=== PATIENT | female | born 1940 | race Caucasian/White ===

== ENCOUNTER 2019-05-12 15:57 | Inpatient (IN) | payer OTHER ==
[~2019-05-12] VITALS: Ht 154.9 cm; Wt 61.0 kg
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
[~2019-05-12 15:57] MED LIST: ACETAMINOPHEN325 M1 PO; ACIDOPHILUS1 EAC4 PO; APAP650 PO; AUGMENTIN 875-1 EACH PO; CARDIZEM60 MG PO; CEFDINIR300 MG PO; CEFUROXIME500 MG PO; DILTIAZEM 24HR180 M3 PO; ELIQUIS5 MG PO; FIRVANQ50 MG/1 ML PO; FLOMAX0.4 MG PO; IPRAT-ALBUT 0.5-3 ML INH; IPRAT-ALBUT 0.5-3 ML PO; IRON325 PO; LEVAQUIN 500 M500 M2 PO; LOPERAMIDE 2 MG2 M1 PO; MAGOX 400400 MG PO; PROTONIX40 M1 PO; THERA M PLUS T1 EAC2 PO; TRAMADOL 50 MG50 MG PO; TRIAMCINOLONE A80 G2 TOP; VITAMIN D1000 UNI1 PO; VOLTAREN GEL 1100 G1 TOP
[2019-05-12 15:58] VITALS: BP 125/93
[2019-05-12 16:10] LABS: ABSOLUTE NEUTROPHILS 4.3 thou/uL (1.4-8.2); BASOPHILS 0.6 % (0.0-2.0); EOSINOPHILS 1.1 % (0.0-3.0); HEMATOCRIT 32.7 % (37.0-47.0); HEMOGLOBIN 10.7 gm/dL (12.0-15.0); LYMPHOCYTES 30.3 % (24.0-44.0); MCH 29.3 pg (26.0-34.0); MCHC 32.7 g/dL (28.0-37.0); MCV 89.4 fL (80.0-100.0); MONOCYTES 11.1 % (1.0-8.0); PLATELET COUNT 202 thou/uL (150-400); POLYS 56.9 % (36.0-66.0); RBC 3.66 mil/uL (4.20-5.00); RDW 15.9 % (10.5-14.5); WBC 7.5 thou/uL (4.0-11.0)
[2019-05-12 16:17] LABS: CALCIUM 8.9 mg/dL (8.5-10.1); POTASSIUM 3.1 mmol/L (3.5-5.1)
[2019-05-12 16:23] LABS: ALBUMIN 2.9 g/dL (3.4-5.0); TOTAL BILIRUBIN 0.4 mg/dL (<0.1-1.0); TOTAL PROTEIN 6.6 g/dL (6.4-8.2)
[2019-05-12 16:24] LABS: URINE BILIRUBIN NEGATIVE (Negative); URINE BLOOD 3+ (Negative); URINE CLARITY CLEAR; URINE COLOR YELLOW; URINE GLUCOSE-RANDOM* NEGATIVE (Negative); URINE KETONES NEGATIVE (Negative); URINE LEUKOCYTES NEGATIVE (Negative); URINE NITRITE NEGATIVE (Negative); URINE PROTEIN (DIPSTICK) NEGATIVE (Negative); URINE SPECIFIC GRAVITY <= 1.005 (1.005-1.035); URINE UROBILINOGEN 0.2 E.U./dl (0.2-1.0)
[2019-05-12 16:30] LABS: CASTS None Seen /LPF (None Seen); CRYSTALS None Seen /LPF (None Seen); SQUAMOUS 4-10 Moderate /LPF (0-3); URINE RBC >20 Many /HPF (0-2)
[2019-05-12 16:31] LABS: BACTERIA 1-9 Few /HPF (None Seen); URINE WBC 6-15 Few /HPF (0-5)
--- NOTE | 2019-05-12 16:38 | NUR ---
PT HAS TWO BUTTOCK WOUNDS, WOUND CONSULT PLACED.
[2019-05-12 20:37] VITALS: BP 137/83
[2019-05-12] MEDS ORDERED: VITAMIN C500 M1 PO (23:10)
[2019-05-12] MEDS ORDERED: SEROQUEL 25 MG25 M1 PO ×2 (23:13→23:14)
[2019-05-12] MEDS ORDERED: ACIDOPHILUS1 EAC4 PO (23:18)
[2019-05-12] MEDS ORDERED: VANCOCIN 125 M125 M1 PO ×2 (23:24→23:30)
[2019-05-12] MEDS ORDERED: VANCOCIN 125 M125 M1 (23:27)
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
[2019-05-13 04:44] VITALS: BP 169/101
[2019-05-13 05:10] VITALS: BP 169/97
--- NOTE | 2019-05-13 05:14 | NUR ---
The pt. slept sound all nite, was incontinent of bladder a few times in the nite and changed/cleansed. Wound photos were taken and they were measured and dressed. She was calm, cooperative, soft-spoken. zt=882/97, p=81. Padmini JANITOR AND CLEANER was called and she said to give Cardizem medication now and monitor. No c.o. chest pain, shortness of breath, or discomfort.
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
--- NOTE | 2019-05-13 07:45 | NUR ---
PT UP IN DINNING ROOM SITTING AT TABLE. PT HAS WALKER AT SIDE. PT STATED SHE HAS SOME PAIN TO HIPS BILATERALLY, COULDN'T SAY WHAT LEVEL, JUST ACHES. PT KNOW SHE IS AT [facility]. PT KNOWS NAME AND BIRTHDAY. PT HAS IRREGULAR HEARTBEAT. PT HAS WOUNDS TO COCCYX X2 AND ONE TO RT UPPER THIGH DORSAL SIDE. PT LUNGS CLEAR. PT UP WITH WALKER WITH STAND-BY ASSIST. PT HAS HAD SMALL SOFT STOOL.
[2019-05-13 08:00] VITALS: BP 142/95
[2019-05-13 08:35] VITALS: BP 142/95
--- NOTE | 2019-05-13 08:52 | NUR ---
WOUND CARE HERE TO SEE PT. ORDERS OBTAINED FOR DRESSING CHANGES.
[2019-05-13 08:54] LABS: CALCIUM 9.5 mg/dL (8.5-10.1); CREATININE 0.9 mg/dL (0.6-1.0); MAGNESIUM 1.8 mg/dL (1.8-2.4); POTASSIUM 3.3 mmol/L (3.5-5.1)
--- NOTE | 2019-05-13 09:21 | NUR ---
ADM KDUR 40MEQ PO FOR POTASSIUM LEVEL 3.3. WILL RECHECK IN 4 HOURS.
--- NOTE | 2019-05-13 10:57 | NUR ---
PT WENT DOWN TO CT SCAN. PT WENT DOWN IN W/C AND ACCOMPANIED BY STAFF.
--- NOTE | 2019-05-13 13:02 | NUR ---
ADM MAG. 400MG PO FOR LAB LEVEL 1.8.
--- NOTE | 2019-05-13 14:30 | NUR ---
DRESSSED WOUNDS TO COCCYX AND RT HIP. PT LAYING IN BED.
[2019-05-13 17:06] LABS: FOLIC ACID 14.2 ng/mL (8.6-58.9); TSH 0.483 uIU/mL (0.358-3.740)
--- NOTE | 2019-05-13 19:11 | NUR ---
PT COMPLIANT WITH MEDS AND EATING WELL. PT UP WITH WALKER.
[2019-05-13 20:13] VITALS: BP 122/66
--- NOTE | 2019-05-13 23:36 | NUR ---
ASSUMED CARE OF THE PT AT 191 PM. ALERT ET ORIENTED X 2. MAKES NEEDS KNOWN. THE PT HAS DRESSING TO HER HIP AND COCCYX, WHICH WERE CHANGED DURING THE DAY SHIFT. HEART RATE IRREGULAR. LUNGS CLEAR BILATERALLY, RESP., EVEN, AND UNLABORED. +BS HEARD IN ALL 4 QUADRANTS. THE PT WALKS WITH A WALKER. THE PT TOOK HER HS MEDICATIONS WITHOUT ANY DIFFICULTY. REMAINS ON 12 MINUTE CHECKS FOR HER SAFETY.
--- NOTE | 2019-05-14 09:01 | NUR ---
PATIENT UP ON DINING PADRON FOR BREAKFAST. RESPONSIVE TO QUESTIONS ADDRESSED TO HER. MEDICATION COMPLIANT. PLEASANT AND CALM. STATED GOOD NIGHT SLEEP WHEN ASKED. DENIES ANY S/I - SMILING - OBSERVED NO INTERNAL STIMULI THIS MORNING. RETIRED TO HER ROOM AFTER BREAKFAST.
[2019-05-14 09:06] VITALS: BP 147/75
--- NOTE | 2019-05-14 15:16 | NUR ---
SW spoke with pt's son and he reported that she was having increased behaviors since her surgeries, and he would like her back in [place] near his home. [facility] [phone]
--- NOTE | 2019-05-14 17:24 | EKG ---
[address] [place] [address] ELECTROCARDIOGRAM REPORT Name: BETTYE DEE Room #: [facility] ADM IN M.R.#: [id number] Admission: 05/12/19 Attend Phys: Jose Luis Krause DO Discharge: Date of : 38 Report #: [id number] THIS REPORT FOR: //name// [facility] Test Date: 2019-05-13 Test Time: 19:11:24 Pat Name: BETTYE DEE Department: Room: [facility] Gender: F Operator Cavity Pump: Jessica BALDWIN : 1940 Requested By: Jose Luis Krause Order Number: [id number] MD: Janes Jaeger Measurements Intervals [place] Rate: 77 P: SD: QRS: -19 QRSD: 95 T: 4 QT: 408 QTc: 462 Interpretive Statements Atrial fibrillation Poor R wave progression No previous ECG available for comparison Electronically Signed On 05-14-2019 17:23:49 CDT by Janes Jaeger [email or web address] <ELECTRONICALLY SIGNED> By: Janes Jaeger MD, [facility] 05/14/19 172 10 10 Janes Jaeger MD, FACC /EPI
[2019-05-15 03:25] VITALS: BP 147/75
--- NOTE | 2019-05-15 06:49 | NUR ---
SLEPT 5.2 HOURS
[2019-05-15 09:44] VITALS: BP 138/71
--- NOTE | 2019-05-15 14:33 | NUR ---
PATIENT COMPLIANT WITH MEDICATIONS, ATTEMPTS TO HANDLE OWN BATHROOM NEEDS BUT NEEDS ASSISTANCE WITH IT. AMBULATES BUT UNSTEADILY. NEEDS TO BE REMINDED TO USE WALKER. ISOLATES TO ROOM AFTER MEALS - MOOD SULLEN TODAY AND AFFECT FLAT AND WITHDRAWN. DENIES ANY S/I - NEEDS ENCOURAGEMENT WITH ADL'S AT TIMES. HAS HAD PAIN WITH WOUND SON BUTTOCK AREA AND RIGHT UPPER THIGH. WOUNDS IN SENSITIVE SPOT AND BOWEL MOVEMENTS SOIL AREA OFTEN AND NEED FREQUENT MONITORING. DRESSING CHANGED TODAY - NO DISCHARGE OBSERVED. TOLERATED WELL.
[2019-05-15 19:33] VITALS: BP 107/56
[2019-05-16 09:50] VITALS: BP 119/65
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
--- NOTE | 2019-05-16 10:58 | NUR ---
ALERT AND ORIETED TO SELF, SHE IS AWARE OF HER NAME BUT COULD NOT TELL ME WHERE SHE WAS, THE DATE OR TIME, SHE IS IRRITABLE BUT COOPERATIVE, SHE SAYS SHE HAS SOME PAIN IN HER WOUND AREA, AND RATES IT AT "ABOUT 2", SHE TAKES MEDS AND EATS WITHOUT PROBLEMS, SHE FORGETS HER WALKER AND HAS TO BE REMINDED, SHE HAS BEEN ENCOURAGED TO PARTICIPATE IN GROUPS, BUT WALKS AWAY. DRESSINGS ON HER BUTTOCK AND THIGH CHANGED, SHE DID SOIL THEM WHEN HER BOWELS MOVED, SHE DENIES SI/HI AND NO SYMPTOMS OF AVH. CONTINUE TO MONITOR FOR BEHAVIORS AND SAFETY.
[2019-05-16 20:12] VITALS: BP 133/74
[2019-05-17 00:07] VITALS: BP 133/74
--- NOTE | 2019-05-17 03:22 | NUR ---
PT QUIET BUT COOPERATIVE. PATIENT UNSTEADY AND NEEDS ENCOURAGMENT TO USE WALKER. TOOK HS MEDS AFTER EVENING SNACKS. ISOLATES IN ROOM. WOUND CARE SEEING PTFOR COCCYX THIGH WOUNDS. DRESSING INTACT. NO C/O PAIN, AFFECT FLAT. BM TODAY. SLEPT WELL THROUGH THE NIGHT.
[2019-05-17 07:47] VITALS: BP 109/55
--- NOTE | 2019-05-17 11:50 | NUR ---
WITHDRAWN TO ROOM MAJORITY OF AM-DID COME OUT FOR GROUP BUT LEFT EARLY WITH COMPLAINST SHE HAD TO USE BATHROOM-DID HAVE MODERATE SIZED TARRY GREENISH COLORED STOOL WHICH WAS ALL OVER HER LEGS AND TORSO AND AROUND RIM OF STOOL-WOUNDS CLEANSED WITH SALINE,DAKINS AND DRESSING APPLIED PER MD ORDER-DENIES PAIN TO SITE.PLEASANT BUT VAGUE IN RESPONSES. GAIT STEADY WITH USE OF ROLLER WALKER. BLUNTED AFFECT-NO NOTED INTERACTION WITH PEERS-DENIES C/O PAIN/DISCOMFORT
--- NOTE | 2019-05-17 18:01 | NUR ---
NOTED INCREASED CONFUSION THIS PM-WANDERING IN AND OUT OF OTHERS ROOMS AND LOST HER GLASSES-FOUND BY STAFF ON BEDSIDE TABLE IN PEERS ROOM.
[2019-05-17 22:30] VITALS: BP 125/66
--- NOTE | 2019-05-18 04:05 | NUR ---
Assumed pt care at 1900. Pt A/OX3,able to make needs known. No SI/behaviors noted so far. Up with RW. VSS. Denies pain on assessment. Compliant with HS meds and wound care. Continent of bladder. Resting with eyes closed no distress noted at this time,fall precautions in place. Will continue to monitor pt.
--- NOTE | 2019-05-18 06:24 | NUR ---
Pt slept for 8 hours.
[2019-05-18 09:50] VITALS: BP 113/61
--- NOTE | 2019-05-18 15:07 | NUR ---
Received request from son to send an admission packet to [facility] in [facility]. Did this. Recieved a call later from Sonali at [facility] where the patient had been residing prior to coming here. spring floor service worker claimed son stopped by to say that we reccommended patient moving there and not returning to [facility]. I told the social security benefits interviewer that we did not recommend and that it was the son who requested that we send the packet. Sonali's # at [facility] is [phone]. As of this time - no contact from [facility].
--- NOTE | 2019-05-18 15:21 | NUR ---
PATIENT HAS BEEN ISOLATIVE TO ROOM. VENTURES OUT FOR MEALS AND NEEDS ENCOURAGEMENT TO PARTICIPATE IN GROUPS. MEDICATION COMPLIANT. HAS DIFFICULTY SWALLOWING PILLS WHOLE - STATED PAIN IN BUTTOCKS AND HIP BUT IMPROVES WITH MEDICATION. DENIES JUANY S/I - MAKES NEEDS KNOWN. DRESSING CHANGED ON WOUNDS AND TOLERATED WELL - APPEARS TO BE HEALING VERY WELL PER WOUND CARE DIVISION. CALM - WITHDRAWN AND AGREEABLE.
[2019-05-18 21:00] VITALS: BP 105/55
--- NOTE | 2019-05-19 01:33 | NUR ---
Care assumed of patient at 1915: Patient alert and oriented to person and place, disoriented to current time and location. Patient forgetful and confused at times. Patient appears flat and depressed. Isolative to her room this evening. Declined HS snack. Took HS medication without difficulties. Denies feeling depressed or anxious. Denies SI/HI/AH/VH. No agitation or aggression observed. Dressings changed to 3 open areas. Denies pain or discomfort during dressing change. Tolerated well. Patient remains on abx tx for the diagnosis of c-diff. No s/s of adverse effects noted at this time. No loose stools observed this shift. During assessment, patient presents with dark black areas covering top of tongue. Patient was provided water to rinse her mouth. Remains on tongue. No darkened foods/drinks had been consumed at that time. Denies pain or burning to her tongue. Nurse spoke with KRISTY Aquino, order obtained for Nystatin swish and swallow QID. Orders noted. Patient has been assisted in changing positions every 2 hours this shift. Patient is not wearing a brief while in bed. Patient has been resting quietly with no s/s of distress.
--- NOTE | 2019-05-19 14:04 | NUR ---
Date of Admission: 05/12/19 Date of Activity Therapy Assessment: 05/15/19 Activity Goal: Manage anxiety/depression symptoms Initial Goal: 2 Group activities/day Weekly progress towards goal: Did not achieve goals Group participation level: Moderate Behaviors observed: Patient's participation has been inconsistent since admission. At times patient is found to be tearful and disoriented, resulting in refusal of group. Patient's social interactions are primarily reserved. Plan: No change towards goal
--- NOTE | 2019-05-19 16:47 | NUR ---
HOLA spoke with DON and weatherization administrator at [facility] and they requested updates. SW faxed them, and they wanted further information and Sw asked them to call and speak with nursing. They will be sending out staff to do an assessment for re admission. They stated that it would be or Friday but would not readmit until Friday.
--- NOTE | 2019-05-19 17:23 | NUR ---
ATTENDING SCHEDULED ACTIVITES WITH PROMPTS. APPEARS MORE VISIBLE ON UNIT-IN DAYROOM WITH PEERS DURING FREE TIME-LITTLE NOTED INTERACTION WITH OTHERS. CONSTRICTED AFFECT-VAGUE,SUPERFICIAL RESPONSES. DENIES C/O PAIN-DENIES SI/SH/HI. GAIT STEADY WITH USE OF WALKER-WOUND CARE COMPLETED PER ORDER. PT HAS BEEN WITHER AMBULATING OR SITTINF IN GROUP OR DAYROOM THROUGHOUT ENTIRE SHIFT SO NO NEED FOR TURNING Q 2 HOURS-CONTINENT OF BOWEL AND BLADDER THIS SHIFT. ORIENTED TO NAME-AWARE SHE IS IN HOSPITAL BUT DOES NOT KNOW NAME OF HOSPITAL.
--- NOTE | 2019-05-19 22:22 | NUR ---
PATIENT REFUSED HS DRESSING CHANGES. PATIENT STATED 'IT IS NOT NECESSARY AT THIS TIME, I JUST WANT TO ROLL OVER AND SLEEP.' MEDICATION ADMINISTERED ORDERED.
--- NOTE | 2019-05-20 03:01 | NUR ---
ASSUMED CARE OF PATIENT AT APPROXIMATELY 1915, PATIENT IS ALERT AND ORIENTED X1-2. SHE IS CALM AND COOPERATIVE, CONFUSED AT TIMES NEEDING LITTLE REDIRECTION. SHE WAS OBSERVED 'GETTING READY FOR CLASS.' THIS NURSE GROUNDED PATIENT AND PATIENT STATED 'OH YES YOURE RIGHT, I BETTER GO TO SLEEP.' SHE APPEARS WITH A EUTHYMIC AFFECT, DENIES FEELINGS OF DEPRESSION AND ANXIETY, DENIES SI HI SH. SHE DENIES PAIN UPON ASSESSMENT, THIS NURSE ATTEMPTED TO COMPLETE DRESSING CHANGES ON WOUNDS, BUT PATIENT REFUSED THIS TX. SHE DOES NOT APPEAR TO BE IN MEDICAL DISTRESS, NURSING WILL MAINTAIN Q12 CHECKS TO ENSURE SAFETY AT ALL TIMES.
[2019-05-20 07:00] VITALS: BP 110/65
[2019-05-20] MEDS ORDERED: FIRVANQ50 MG/1 ML PO (10:09)
[2019-05-20 10:26] VITALS: BP 110/65
--- NOTE | 2019-05-20 19:13 | NUR ---
PATIENT HAS BEEN UP AND OUT ON THE UNIT MOST OF THE SHIFT. AMBULATES WITH ASSIST OF ROLLER WALKER. PATIENT TOOK MEDICATION CRUSHED IN PUDDING, WELL TOLERATED. PATIENT DENIES SUICIDAL AND HOMICIDAL IDEATION. SHE DENIES DEPRESSION/ANXIETY. DRESSING TO WOUND AREA CHANGED, NO FOWL ODER, OR DRAINAGE NOTED. AFFECT IS BRIGHT, MOOD IS LABILE, NO SIGN OF ACUTE DISTRESS NOTED, WILL MONITOR FOR SAFETY.
[2019-05-20 19:21] VITALS: BP 103/66
--- NOTE | 2019-05-21 02:58 | NUR ---
Care assumed of patient at 1915: Patient sitting in day room at start of shift. Patient alert and oriented to person. Patient appears more confused and forgetful this evening than previous shifts. Patient unable to state current location or date. Patient states that she is here to look for her son. Patient took HS medication without difficulty. Patient declined HS snack. Patient had one episode of incontinence of bladder this shift. Verena care provided. Dressings changed to wounds x3. See wound notes. Patient denies pain or discomfort this shift. Patient has been restless this shift. Patient has come out of her room x4 irritable and looking for the "crying baby". Patient difficult to re-direct. Patient denies SI/HI. No aggression observed. Unknown of any specific delusions. Appears to be upset and agitated about the "crying baby". Patient encouraged to turn and change positions every 2 hours. Patient remains on po abx tx for the diagnosis of c-diff. Patient also receiving Nystatin for thrush. No s/s of adverse side affects noted at this time. Patient resting quietly in bed at this time.
[2019-05-21 07:45] VITALS: BP 116/49
--- NOTE | 2019-05-21 11:00 | NUR ---
HAS BEEM AMBULATING IN HALLWAYS THIS AM-GAIT IS RAPID AND IS NOT USING ROLLER WALKER-WHEN ASKED TO USE WALKER STATES"I DON'T NEED IT" DID RECALL HEARING BABIES DURING THE NIGHT LAST PM STATING TO THIS NURSE "SHOULD I REPORT THAT TO SOMEONE" DENIES S/O PAIN OR DISCOMNFORT. DENIES SI/SH/HI-NO NOTED OR REPORTED ACUTE ANXIETY-FEEDS SELF AND APPETTITE IS FAIR. WOUUND CARE COMPLETED P[ER ORDER
--- NOTE | 2019-05-21 16:58 | NUR ---
Connie kinsey with [facility] and they stated that they would be in to see this pt today at 1pm.[phone].
[2019-05-21 20:02] VITALS: BP 162/66
--- NOTE | 2019-05-21 23:20 | NUR ---
Care assumed of patient at 1915: Patient alert and oriented to person. Disoriented on current place and time. Patient states that she is here to "get better". Patient smiling, interactive, calm and cooperative. Patient very pleasant this evening. Sat in day room to enjoy snack with peers. Took HS medication without difficulty. Denies SI/HI. No s/s of AH/VH observed or reported this shift. No s/s of paranoia or delusional behaviors. Patient remains on PO abx tx for the diagnosis of c-diff. Also prescribed Nystatin oral for the dx of thrush. Tongue does not appear black any longer and appears more light/dark brown in color. Denies pain or discomfort. Dressings to wounds completed. Patient retired to bed and has been resting quietly since.
[2019-05-22 09:16] VITALS: BP 122/56
--- NOTE | 2019-05-22 17:30 | NUR ---
HAS BEEN UP AND DOWN TODAY, SHE IS ALERT AND ORIENTED X 3, SHE STATED SHE THOUGHT SHE WOULD GO HOME ON FRIDAY, SHE IS MEDICATION AND MEAL COMPLIANT, DENIES SI/HI SAND AVH, DRESSINGS CHANGED TO HER COCCYX AREA, SHE IS ISOLATED TO HERSELF WHEN SHE IS IN THE DAYROOM. WILL MONITOR FOR BEHAVIORS AND SAFETY.
[2019-05-22 19:41] VITALS: BP 98/66
--- NOTE | 2019-05-22 22:01 | NUR ---
Care assumed of patient at 1915: Patient alert and oriented to person. Confusion and forgetfulness noted. Patient interactive, smiling, pleasant and cooperative. Patient declined HS snack this evening. Patient took HS medication whole without difficulty. Patient ambulating with FWW about her room and the unit. Patient currently receives PO abx tx for the dx of c-diff. Receives Nystatin po for the dx of thrush. Denies SI/HI/AH/VH. No s/s of delusional or paranoia behaviors. No aggression or agitation observed. Dressings changed to open areas. Patient resting quietly in bed at this time.
[2019-05-23 07:25] VITALS: BP 104/66
--- NOTE | 2019-05-23 16:35 | NUR ---
HAS BEEN UP MOST OF DAY, SHE IS SOMEWHAT ANXIOUS AND TLKING ABOUT HER SON COMING TO GET HER AND TAKE HER HOME, SHE IS REDIRECTABLE, SHE IS ALERT AND ORIENTED X 2 TODAY, SHE IS COMPLIANT WITH MEALS AND MEDICATIONS, SHE DENIES PAIN, SHE DENIES SI/HI AND AVH, IS FORGETFUL ASKING QUESTIONS OVER AND OVER TO STAFF. AMBULATES WITH HER WALKER, SHE HAS LEFT IT IN HER ROOM A FEW TIMES AND ALWAYS REMINDED TO USE IT. CONTINUE TO MONITOR FOR BEHAVIORS AND SAFETY.
[2019-05-23 19:34] VITALS: BP 138/76
[2019-05-23 23:24] VITALS: BP 138/76
--- NOTE | 2019-05-24 01:31 | NUR ---
PATIENT WAS IN BED AWAKE WITH LIGHTS ON WHEN I ASSESSED PATIENT AT 193. SHE IS COOPERATIVE AND PLEASANT. SHE STAYS TO HERSELF IN HER ROOM TONIGHT. DRESSING CHANGE TO HER 2 WOUNDS ON BUTTOCKS AND 1 WOUND ON RIGHT HIP CLEANED AND REDRESSED ALSO. PATIENT SLEPT FOR ABOUT 2 HOURS AND THEN KEPT GETTING UP. HELPED PATIENT TO BATHROOM TWICE IN NIGHT. SHE THEN OBSESSED ABOUT HER CLOTHES AND WANTING TO GET THEM ALL TOGETHER. EXPLAINED TO HER THAT IT WAS ONE IN THE MORNING. HAD GIVEN PATIENT TRAZADONE 25MG AT 2040. THEN WHEN SHE VOICED SHE WAS HAVING GENERALIZED PAIN, I GAVE HER 500MG ES TYLENOL AT 54 ALONG WITH OLANZAPINE 5MG PO AT 51. SHE HAS BEEN RESTLESS AND UP AND DOWN IN ROOM AND MIXING HER CLOTHES WITH TRASH IN THE TRASH SACKS. SHE HAS IN HER MIND THAT SHE NEEDS TO BE UP DOING THINGS AND GETTING HER CLOTHES TOGETHER. I HAVE CHANGED PATIENT'S CLOTHES TWICE TONITE D/T HER WANTING TO CHANGE CLOTHES. WASHING SOME CLOTHES AT THIS TIME. PATIENT DID HAVE A MODERATE SOFT UNFORMED STOOL TONIGHT. PATIENT IS CONTINENT TONIGHT AND DOES GET HERSELF UP TO USE BATHROOM. PATIENT WAS JUST PUT BACK TO BED AND TOLD HER WE WILL WAKE HER UP IN THE MORNING WHEN IT'S TIME FOR HER TO GET UP AND START HER CHORES. SHE ALSO WANTED TO CALL HER SISTER. I EXPLAINED IT WAS THE MIDDLE OF THE NIGHT AND WOULD HAVE TO WAIT TILL AFTER BREAKFAST. SHE WAS OK WITH THIS. PATIENT WITH BED ALARM ON AND BED IN LOW POSITION. SHE WAS MORE A/O EARLIER IN THE EVENING AND MORE CONFUSED AND OBSESSED WITH HER THOUGHTS THE NIGHT GOT LATER. CONTINUING TO MONITOR.
--- NOTE | 2019-05-24 02:19 | NUR ---
PATIENT UP AND WALKING UNSTEADY WITH WALKER. GOT A WC AND WHEELED HER TO A TABLE IN DINING ROOM. SHE IS TEARY EYED. SHE STATES SHE NEEDS TO CALL KATE AND JENNIFER BECAUSE SHE DIDN'T HEAR FROM THEM TODAY. I LET HER KNOW THAT SHE HAD TALKED TO KATE EARLIER TODAY AND SHE DOESN'T REMEMBER. KATE HAD CALLED DURING THIS SHIFT TO TO SEE IF A [facility] HAD COME OUT TODAY TO ASSESS PATIENT. TOLD HIM I WAS NOT AWARE OF ANY AND THAT IT WOULD PROBABLY BE FRIDAY BEFORE THEY DID. HE SAID HE WAS GOING TO BE COMING IN TODAY TO SEE THE PATIENT AND HE IS HOPING THE PEOPLE COME WHILE HE IS HERE. I LET PATIENT KNOW THAT KATE SAID HE WOULD BE COMING TODAY. PATIENT STATES SHE UNDERSTANDS BUT KEEPS OBSESSING OVER CALLING SONS. SHE IS SETTING QUIETLY NOW AT A TABLE. SHE IS GROGGY FROM MEDS BUT DENIES PAIN AND SLEEPINESS. PATIENT SEEMS TO NEED SOMETHING STRONGER FOR SLEEP. GAVE PATIENT THE BUSY APRON TO WORK WITH AND SHE STATES THAT IT JUST FRUSTRATES HER MORE BECAUSE SHE DOESN'T UNDERSTAND WHAT TO DO WITH IT. I LET HER KNOW IT WAS OKAY AND WAS THERE JUST TO GIVE HER SOMETHING TO HOLD ON TO OR FEEL THE DIFFERENT TEXTURES IF SHE WANTED. LET HER KNOW SHE DOESN'T HAVE TO DO ANYTHING WITH IT IF SHE DOESN'T WANT TO. SHE
--- NOTE | 2019-05-24 05:23 | NUR ---
PATIENT UP WALKING THE HALLS. SHE IS WANTING TO MAKE A CALL TO HER SON. SHE JUST WANTS TO TALK WITH HIM. LET PATIENT KNOW THAT SHE NEEDS TO WAIT UNTIL AFTER BREAKFAST TO CALL AND IT'S TOO EARLY. EXPLAINED THAT HER SON SAID HE WOULD COME IN TODAY. PATIENT SAID OKAY AND THEN NEEDED HELP FINDING HER ROOM. SHE IS CONFUSED AND SAID THAT SHE WAS TOLD SHE WOULDN'T BE CHARGED TO STAY IN A ROOM TONIGHT. SHE DID NOT RECOGNIZE HER ROOM WHEN I TOOK HER TO IT AND SHOWED HER THE NAME ON THE DOOR. SHE SAID "IS THIS THE ROOM THAT YOU ORDERED FOR ME TO STAY TONIGHT IN?" I SAID YES AND SHE WENT ON IN TO HER ROOM AND WALKED AROUND. PATIENT HAS BEEN URINATING ALOT TONIGHT. SHE HAS BEEN TO THE BATHROOM ABOUT 5 TIMES. THE LAST TIME SHE WENT SHE PULLED HER OUTSIDE PANTS DOWN BUT LEFT HER DISPOSABLE BRIEFS ON AND SAT ON TOILET. SHE THEN WIPED OUTSIDE OF BRIEFS. I TRIED TO EXPLAIN AND SHOW HER THAT SHE NEEDED TO PULL DOWN THE BRIEFS TOO BECAUSE IF SHE URINATES IT WILL GO IN HER BRIEFS AND NOT THE TOILET. SHE SAID, "IT WON'T GO THRU MY BRIEF." "iT'S JUST A DROP" AND PUSHED ME AWAY I TRIED TO HELP HER.
[2019-05-24 08:00] VITALS: BP 118/79
--- NOTE | 2019-05-24 08:00 | NUR ---
PT UP WALKING IN PADRON WITHOUT WALKER. PT UPSET ABOUT TIRED OF EVERYONE TELLING HER SOMETHINGS AND NOT BEING TRUE. PT STATED SHE WANTED TO SEE HER SON. PT DIDN'T GET MUCH SLEEP LAST NIGHT. PT SEEMS MORE CONFUSED TODAY.
[2019-05-24 09:38] VITALS: BP 118/79
--- NOTE | 2019-05-24 13:17 | NUR ---
Left message at [facility] for to call me to check on status of their visiting pt. last Friday afternoon
--- NOTE | 2019-05-24 15:59 | NUR ---
Spoke with Reilly Peña who requested notes to be faxed for consideration for tomorrow admission. Stated they had concerns about her wound care and her behaviors. Notes will be faxed and review with asst. DON will be held. May need to D/C to [facility] if Reilly Peña pushes back. Son Bernard is intervening with Wan.
--- NOTE | 2019-05-24 17:50 | NUR ---
NOTICED PT IS DROOLING TODAY. PT CARRING A PAPER BAG FROM ROOM ALSO AND SHE WENT TO EXIT DOOR.
[2019-05-24 20:49] VITALS: BP 140/72
[2019-05-24 21:41] VITALS: BP 140/72
--- NOTE | 2019-05-25 02:33 | NUR ---
RESTLESS EARLY THIS EVENING. DECIDED TO SIT DOWN ON THE FLOOR. ASSISTED TO ROOM AFTER HS SNACKS. TOOK HS MEDS ORDERED. WOUND CARE PROVIDED WITH DRESSING CHANGE. SLEEPING WELL THROUGH THE NIGHT TO THIS POINT. REMAINS VERY CONFUSED BUT COOPERATIVE.
[2019-05-25 08:00] VITALS: BP 109/69
--- NOTE | 2019-05-25 08:00 | NUR ---
PT UP WALKING AROUND IN HER ROOM. PT CONFUSED SAYING SHE WANTED TO GO TO STORE AND GET SOME PADS. PT UPSET ABOUT HER SON DOESN'T TELL HER THINGS ANY MORE. PT USES WALKER AT TIMES AND OTHERS NOT.
[2019-05-25 20:01] VITALS: BP 125/83
--- NOTE | 2019-05-25 21:52 | NUR ---
Care assumed of patient at 1915: Patient ambulating about the unit holding her clothing and personal belongings in a brown bag. Patient alert and oriented to person only. Patient confused and forgetful. Patient requesting a map of the airport so she does not miss her flight. Patient states that her goal is to make sure that she catches her plain so she can see her son. Patient oriented to unit and showed her room. Patient assisted to place her belongings on her shelves. Patient seen a few moments later with all her belongings back in the bag asking how to get to the bus stop. Patient denies pain or discomfort. Denies SI/HI/AH/VH. No s/s of AH/VH or paranoia observed. Patient is to ambulate with FWW but will often forget to use it and tries to carry it. Patient took HS medication without difficulties. Ate 100% HS snack. Patient is seated in the day room at this time watching TV. Patient has declined to lay down in bed at this time.
[2019-05-26 05:25] LABS: HEMATOCRIT 26.5 % (37.0-47.0); HEMOGLOBIN 8.6 gm/dL (12.0-15.0); MCH 29.4 pg (26.0-34.0); MCHC 32.7 g/dL (28.0-37.0); MCV 90.1 fL (80.0-100.0); RBC 2.94 mil/uL (4.20-5.00); RDW 16.7 % (10.5-14.5); WBC 6.4 thou/uL (4.0-11.0)
[2019-05-26 06:07] LABS: CALCIUM 9.4 mg/dL (8.5-10.1); CREATININE 1.1 mg/dL (0.6-1.0); POTASSIUM 4.4 mmol/L (3.5-5.1)
--- NOTE | 2019-05-26 07:24 | NUR ---
Called and left message for SW at [facility] [phone] that Jil has had a bad night and that wounds are still concerning. Also of note, yesterday Wan Peña turned her down.
[2019-05-26 08:59] VITALS: BP 131/75
--- NOTE | 2019-05-26 11:50 | NUR ---
EXTREMELY RESTLESS THIS AM-APPEARS UNABLE TO SIT STILL-WALKING UP AND DOWN Hallways with nO PARTICULAR DESTINATION. NEEDED SEVERAL APPROACHEAS TO TAKE ALL OF AM MEDS SHE INITALLY REFUSED OR WOULD PUT PILL IN MOUTH AND THEN ABRUPTLY TAKE IT OUT STATING "I DON'T NEED THIS ONE"O FAR THIS AM HAS REFUSED WOUND DRESSING CHANGE STATING "NOT RIGHT NOW-IN A MINUTE-INB A MINUTE" BECOMES AGITRATED WITH ATTEMPTS TO REDIRECT BACK TO ROOM FOR WQOUND CARE STATING "I SAID NO INTUSIVE WITH PEERS ENTERING THEIR ROOMS AND TAKING THEIR BELONGINGS.
[2019-05-26 14:57] LABS: URINE BILIRUBIN NEGATIVE (Negative); URINE BLOOD 3+ (Negative); URINE CLARITY CLEAR; URINE COLOR YELLOW; URINE GLUCOSE-RANDOM* NEGATIVE (Negative); URINE KETONES NEGATIVE (Negative); URINE PROTEIN (DIPSTICK) TRACE (Negative); URINE SPECIFIC GRAVITY 1.015 (1.005-1.035); URINE UROBILINOGEN 0.2 E.U./dl (0.2-1.0)
[2019-05-26 15:00] LABS: URINE LEUKOCYTES-REFLEX 1+ (Negative); URINE NITRITE-REFLEX POSITIVE (Negative)
--- NOTE | 2019-05-26 15:01 | NUR ---
Date of Admission: 05/12/19 Date of Activity Therapy Assessment: 05/15/19 Activity Goal: Manage anxiety symptoms Initial Goal: 2 Group activities/day Weekly progress towards goal: Did not achieve goals Group participation level: Minimal Behaviors observed: Patients participation level has decreased since last note entry. Patient has begun to wander the unit with disorienting thoughts rather than isolating to room as previously done. Patient has not participated in many groups as she believes that she has other "jobs" or tasks to complete. Plan: No change towards goal
[2019-05-26 15:11] LABS: BACTERIA-REFLEX >30 Many /HPF (None Seen); CASTS None Seen /LPF (None Seen); CRYSTALS None Seen /LPF (None Seen); SQUAMOUS 0-3 Few /LPF (0-3); URINE WBC-REFLEX >25 Many /HPF (0-5); WBC CLUMPS Few (None Seen)
[2019-05-26 20:38] VITALS: BP 106/57
[2019-05-26 23:35] VITALS: BP 106/57
--- NOTE | 2019-05-27 02:04 | NUR ---
PATIENT HAS BEEN IN ROOM RESTING AND SLEEPING SINCE THE BEGINNING OF THE SHIFT AT 1900. SHE HAS BEEN ASLEEP IN EARLIER EVENING AND REFUSED HS MEDS. SHE AWOKE AROUND MIDNIGHT. SHE IS CONFUSED AND STARTING TO OBSESS OVER NEEDING SUPPLIES FROM THE STORE AND NEEDS TO GET THEM NOW. PATIENT WAS GIVEN PRN OLANZAPINE AND SHE LAID DOWN AND ALLOWED ME TO CHANGE HER WOUND DRESSINGS ON BUTTOCK AND LEFT OUTER THIGH. THE WOUNDS WERE CLEANED WITH NS AND THEN DAKINS 25% STRENGTH WITH WET GAUZE TO DRY TO AREAS. WOUND IS COMING TOGETHER AND HEALING. SLIGHT PURULENT DRAINAGE ON OLD DRESSING. PATIENT TOLERATED WELL. PATIENT TOILETED AND WAS BACK TO BED. SHE IS COOPERATIVE AND WAS FINALLY ABLE TO REDIRECT HER BACK TO BED. PATIENT'S UA CULTURE IS STILL PENDING. BED ALARM ON AND BED IN LOW POSITION.
[2019-05-27 05:54] LABS: HEMATOCRIT 30.8 % (37.0-47.0); HEMOGLOBIN 9.8 gm/dL (12.0-15.0); MCH 28.6 pg (26.0-34.0); MCHC 31.8 g/dL (28.0-37.0); RBC 3.42 mil/uL (4.20-5.00); RDW 16.7 % (10.5-14.5); WBC 7.3 thou/uL (4.0-11.0)
[2019-05-27 06:11] LABS: % SATURATION 38 % (20-39); IRON 84 ug/dL (50-170); TIBC 222 ug/dL (250-450)
--- NOTE | 2019-05-27 08:57 | NUR ---
Son Bernard called today saying that he was still working with Wan Peña. Informed son that they have denied her admission and that she will need to return to [facility] and that we were working with them. Son seemed surprised about Wan. Explained she has had a bad few days and that her behavior and her wounds need improvement, then we will be planning on d/c to [facility]. Son voiced understanding.
--- NOTE | 2019-05-27 10:47 | NUR ---
HAS BEEN WALKING RAPIDLY IN HALLWAYS SINCE START OF SHIFT-WILL SIT FOR 2-3 MINUTES BEFORE RESUMING PACING-CONVERSATION DISORGANIZED AND NON-GOAL DIRECTED- TEARFUL-C/O FEELING "SO TIRED" ASSISTED TO ROOM AND DRESSING CHANGE COMPLETED- PT WAS COOPERATIVE WITH RELAXATION TECHNIQUES AND "SLOWING DOWN" SUGGESTIONS-REPORTS RACING THOUGHTS. NO DRAINAGE NOTED WHEN DRESSING CHANGE COMPLETED-PT DENIES CO PAIN. WAS COMPLIENT WITH TAKING AM MEDICATIONS
--- NOTE | 2019-05-27 17:33 | NUR ---
AT APPROX 1230 NOTED TO BE WALKING SLOWLY IN HALLWAY-FORWARD LEANING POSTURE- APPEARS "HUNCHED OVER" WALKER UPON INITAL INSPECTION-IS ABLE TO STAND UPRIGHT WITH VERBAL COMMANDS BUT REPORTS FEELING PAIN "ALL OVER" VS TAKEN AND BP 116/63-PULSE 94 R-16. SPEECH MILDLY SLURRED AND OBSERVED BY STAFF AT BEDSIDE TO HAVE HAD SOME DROOLING THIS AM -QUALITY COMPLIANCE MANAGER ARE EQUAL BILATERALLY-NO FACIAL DROOPING,APRIL. ASSISSTED INTO BED-BED EXIT ALARM ACTIVIATED AND NOTIFIED OF ABOVE- ORDER RECEIVED TO DC SEROQUEL XR-VS RETAKEN AT 1730 BP 108/60-P74 R-14. RESPONDS TO VERBAL QUEING BUT REMAINS DROWSY-WILL CONTINUE TO MONITOR
[2019-05-27 19:19] VITALS: BP 136/90
--- NOTE | 2019-05-27 22:41 | NUR ---
Care assumed of patient at 1915: Patient resting in bed at start of shift. Patient alert and oriented to person. Confusion and forgetfulness observed. Patient is talking about seeing the nurse in the paper, awards that different staff had received. Disorganized thoughts noted. Mumbling speech. Patient took HS medication whole without difficulty. Patient did ask if it was the antibiotic for her urine. Seems to be fairly clear and pleasantly confused this shift. Denies SI/HI. No s/s of AH/VH, aggression or agitation. Patient remains on PO abx tx for the dx of UTI. No s/s of adverse effects noted at this time. Patient has been continent of bladder x1. Patient also receives Nystatin swish and swallow for the dx of thrush. Orders received to d/c Olanzapine PRN and to start Haldol 0.5mg po TID. First dose was administered this evening. Patient resting in bed at this time.
[2019-05-28 10:59] VITALS: BP 159/75
--- NOTE | 2019-05-28 13:20 | NUR ---
0712 Report recieved from overnight shift, 0735 patient ate breakfast appetite good. Patient took medication whole in applesauce to assist in swallowing due to size of pills. 904 Patient participated in group, patient has been pleasant. Patient is mobile with walker takes several walks throughout the shift. Mood and Affect pleasant.
[2019-05-28 19:39] VITALS: BP 125/61
--- NOTE | 2019-05-28 22:54 | NUR ---
Care assumed of patient at 1915: Patient alert and oriented to person. Patient confused and forgetful. Patient resting in bed at start of shift. Patient has gotten out of bed a couple times to use the bathroom and pilfer. Patient has been pleasantly confused. Declined HS snack. Took HS medication whole without difficulty. Patient has been up moving her blankets, mumbling under her breath. Unknown what she is talking about. Patient then attempting to go to the bathroom but having a very hard time following one step simple directions. Patient denies pain or discomfort. Unknown of any specific hallucinations but appears to be responding to some type of internal stimuli. Patient has a perplexed look when speaking with her. Patient sleeping with her head at the foot of the bed. She states that is the head of the bed and there is no point in re-directing her at this time. Patient resting quietly.
[2019-05-29 09:31] VITALS: BP 145/71
--- NOTE | 2019-05-29 15:22 | NUR ---
HOLA called [facility] [phone] and spoke with nursing, they are sending a mesage to Jennifer HURTADO who will come out on Friday to complete an assessment for re admission. Will send updates on Friday PM [phone]
--- NOTE | 2019-05-29 15:51 | NUR ---
HAS BEEN RESTLESS/ANXIOUS FOR SHORT INTERVALS THROUGHOUT SHIFT. VERY CONFUSED-STANDING AT NURSES STATION FOR APPROX 25 MIN DESPITE MULTIPLE,REPEATED ATTEMPTS TO REDIRECT /REORIENT. INSISTS THAT SHE IS AT THE [employer]-ATHLETICS TEACHER HAS TAKEN HER TICKET AND HER SON ANDREI WHO SHE IDENTIFIES AN JOB COST ESTIMATOR IS ON WAY TO GET HER. REFUSES TO LEAVE [employer](HALLWAY NEXT TO NURSES STATION) DESPITE STAFF VALLING SON ANDREI AND LETTING HER SPEAK TO HIM ETC,DID EVENTUALLY SIIN CHAIR PROVIDED BY STAFF AFTER APPROX 35 MINUTES
[2019-05-29 20:38] VITALS: BP 123/60
[2019-05-29 23:15] VITALS: BP 123/60
--- NOTE | 2019-05-30 04:17 | NUR ---
PT OUT WANDERING IN DA AREA EARLY IN EVENING. CONFUSED BUT REDIRECTABLE. ESCORTED TO ROOM AFTER SNACKS AND PREPRED FOR BED. DRESSING CHANGED ON BUTTOCK. TOOK HS MEDS ORDERED, AND HAS SLEPT WELL THROUGH THE NIGHT TO THIS POINT.
[2019-05-30 07:45] VITALS: BP 120/69
--- NOTE | 2019-05-30 08:18 | NUR ---
ASSUMED CARE FROM MAT LINKER STAFF. PATIENT CALM, CONTNENT AND PLEASANT. PATIENT WAS UP PACING HER ROOM THIS AM. PATIENT BREATH SOUNDS CLEAR, BOWEL SOUNDS PRESENT, HEART RATE REGULAR S1, S2. PATIENT AMBULATES WITH OUT ASSISTANCE.
[2019-05-30 09:00] VITALS: BP 120/69
--- NOTE | 2019-05-30 10:00 | NUR ---
HOLA called and spoke with Bernard to provide him an update regarding the d/c plans for early next week and will coordinate with Jennifer regarding the transportation. He is satisfied with this outcome
[2019-05-30 20:39] VITALS: BP 136/72
[2019-05-30 22:17] VITALS: BP 136/72
--- NOTE | 2019-05-31 04:07 | NUR ---
PT SPENT MUCH OF EARLY EVENING IN HER ROOM LYING DOWN. QUIET AND CONFUSED. DRESSING ON BUTTOCK CHANGED. TOOK HS MEDS ORDERED W/O PROBLEM. HAS SLEPT WELL THROUGH THE NIGHT.
[2019-05-31 07:58] VITALS: BP 96/52
--- NOTE | 2019-05-31 15:03 | NUR ---
WOUND CARE F/U; ROUNDING TODAY WITH DR AMOR. THE PATIENT WAS UP AND AMBULATORY IN THE ROOM. THE WOUNDS ARE MUCH IMPROVED. RECOMMENDATIONS; CONTINUE ORDERS WITH PERCY ORDERED RN PRESENT
--- NOTE | 2019-05-31 17:51 | NUR ---
HOLA left several VM, and then was later advised that this pt was not able to return to [facility] , since she was on Haldol 3 times a day, and for an update on her wounds. [phone], and that the HOLA delarosa would be calling and reporting this to the family. HOLA rpeorted this to DR Krause and Engagement Manager Tara Hilton.
[2019-05-31 20:00] VITALS: BP 134/83
[2019-06-01 00:36] VITALS: BP 134/83
--- NOTE | 2019-06-01 00:41 | NUR ---
PATIENT UP OUT OF BED TRYING TO TURN OFF HER BED ALARM. SHE IS SLEEPY AND CONFUSED. SHE STARTS CRYING BECAUSE SHE DOESN'T KNOW WHAT SHE IS TO DO. HELPED PATIENT BACK TO BED AND REASSURED HER SHE IS SAFE AND MADE HER COMFORTABLE. PATIENT BACK TO BED AND RESTING. SHE STATES SHE DOES NOT HAVE TO USE THE BATHROOM.
[2019-06-01 05:45] LABS: ALBUMIN 3.1 g/dL (3.4-5.0); CALCIUM 8.7 mg/dL (8.5-10.1); CREATININE 0.9 mg/dL (0.6-1.0); POTASSIUM 4.3 mmol/L (3.5-5.1); TOTAL BILIRUBIN 0.3 mg/dL (<0.1-1.0); TOTAL PROTEIN 6.3 g/dL (6.4-8.2)
[2019-06-01 10:18] VITALS: BP 132/98
--- NOTE | 2019-06-01 10:42 | NUR ---
REFUSED ALL AM MEDICATIONS THIS AM-UPON INITITAL APPROACH STATES "NOT RIGHT NOW COME BACK LATER" RETURNED TO ROOM IMMEDIATLY AFTER EATING BREAKFAST-FOUND IN ROOM TAKING BED CLOTHES OFF OF TOT-[id number] MOOD STATING "GO AWAY-I DON'T NEED ANYTHING" REFUSED DRESSING CHANGE WELL-WILL CONTINUE TO REAPPROACH. DR ROSALES ON UNIT AND NOTIFIED OF MED REFUSAL-PT CONTINUES TO REFUSE MEDS FROM MD WELL.
--- NOTE | 2019-06-01 11:49 | NUR ---
TEARFUL -REFUSING TO LEAVING ROOM FOR MEALS OR GROUPS-WHEN ASKED IF SHE WAS HAVING PAIN STATES "NO" BUT THEN STATES "I'M JUST REALLY NERVOUS-I'M EXHAUSTED ALL OVER AND I WANT TO GO HOME"
[2019-06-01 23:38] VITALS: BP 132/98
--- NOTE | 2019-06-01 23:47 | NUR ---
PATIENT WAS IN HER ROOM LAYING IN BED WHEN I CAME ON FLOOR AT 1900. SHE LATER GOT UP AND WAS WALKING THE HALLS WITH HER WALKER. SHE STILL ISOLATES TO HERSELF. TONITE SHE HAS BEEN CONFUSED. SHE CALLED OUT FOR HELP AFTER GOING TO BED AND WHEN I WENT TO CHECK ON HER SHE ASKED,"WHAT AM I SUPPOSED TO BE DOING?" I LET HER KNOW THAT EVERYONE WAS SLEEPING NOW AND SHE SAID,"OK. I GUES I'LL GO BACK TO SLEEP." SHE THEN ASKED ME HOW THE BABY IS DOING?. SHE WAS HALLUCINATING EARLIER IN THE EVENING AND WANTED ME TO INTRODUCE HER TO THE LADY STANDING BESIDE HER BATHROOM DOOR. I TOLD HER I DID NOT SEE ANYONE. SHE SAID, "OH, I GUESS SHE'S GONE NOW." SHE DID GET TEARY AND SAY THAT SHE WISHED SHE COULD BE CLOSER TO HER SONS. PATIENT DENIES PAIN AND DENIES NEEDING TO USE THE BATHROOM. SHE DOES TOILET HERSELF BUT NEEDS SUPERVISION ON CLEANING HERSELF WELL. PATIENT COOPERATIVE AND RESTING AT THIS TIME. WILL CONTINUE TO MONITOR.
--- NOTE | 2019-06-02 12:36 | NUR ---
Care assumed of patient at 0715: Patient alert and oriented to person. Patient confused and forgetful. Patient believes that she is in [place] and that she just had a baby this AM. Patient impulsive and labile. Patient denies SI/HI/AH/VH. No aggression or agitation observed. Patient had visitors this AM. Patient ambulates with FWW. Denies pain or discomfort. Patient attempts to isolate to her room. Encouraged and assisted to groups this AM. Passive participant. Patient took AM medications without difficulty. Assisted to the bathroom and continent of bladder.
--- NOTE | 2019-06-02 15:48 | NUR ---
SW sent referrals to [facility]-still waiting to hear back, and [facility] ( has declined this pt). Spoke with both sons and reinforced that they needed to be more active in this d/c and to make calls and provide suggestions on where they would like their mom to go. HOLA will continue to support.
[2019-06-02 16:27] VITALS: BP 117/75
[2019-06-02 19:33] VITALS: BP 115/45
[2019-06-02 23:36] VITALS: BP 115/45
[2019-06-03 08:58] VITALS: BP 98/61
--- NOTE | 2019-06-03 11:03 | NUR ---
Date of Admission: 05/12/19 Date of Activity Therapy Assessment: 05/15/19 Activity Goal: Manage anxiety/depression symptoms Initial Goal: 2 Group activities/day Weekly progress towards goal: Did not achieve goals Group participation level: Needs some assistance Behaviors observed: Patient has begun to isolate to room as she did upon admission. She is found to be tearful and frequently states, "I don't want to, I just want to go home," when encouraged to participate in groups. Patient's wandering behaviors have decreased since last note entry. Plan: No change towards goal
--- NOTE | 2019-06-03 16:02 | NUR ---
HOLA spoke with [facility] and they are ;likely going to accept this pt, and would be willing to admit tomorrow or over the weekend. SW reported this to pt's son's and provided them with the NH information via email [email or web address]. This was also reported to Dr Krause. [facility] : [phone] (l) [phone].
--- NOTE | 2019-06-03 16:30 | NUR ---
PT ALERT AND ORIENTED TIMES TWO, CONFUSED MOST OF THE TIME. VSS. PT DENIES SI/HI/SOA. SCHEDULED PAIN MEDICATIONS CONTROLLING PAIN WELL. PT TOLERATES MEDS AND MEALS. PT UP WALKING AROUND THE UNIT WITH WALKER AND STEADY GAIT. PT DID ATTEND GROUPS TODAY.
[2019-06-03 21:07] VITALS: BP 118/70
--- NOTE | 2019-06-04 05:11 | NUR ---
The pt. was medication compliant, pleasant, soft-spoken, walked ad-alfred, worried about paying the bill here she said. Walked with the walker, slept well.
--- NOTE | 2019-06-04 13:26 | NUR ---
Received awake, sitting on chair, confused and anxious- re-oriented. Vital signs stable. On room air. Able to ambulate around the unit using walker. With wound at R buttocks and coccyx- dressing changed today as per wound nurse orders; no dressing seen upon assessment this AM, new dressing placed. Able to swallow medications without difficulty, taking one at a time. No complaints of pain upon dressing change. Able to have a bowel movement today. No signs of agression or restlessness noted.
--- NOTE | 2019-06-04 16:05 | NUR ---
HOLA sent updates to [facility] and they are willing to accpet this pt after the Level II is completed. HOLA completed and submitted this with a SAC, hoping to d/c before the level II is completed so she can start her SNF stay [facility]. HOLA relayed this information to her sons, Dr javier and Tara Hilton.
[2019-06-04 19:33] VITALS: BP 108/57
[2019-06-04 23:30] VITALS: BP 108/57
--- NOTE | 2019-06-05 03:45 | NUR ---
PT OUT WITH PEERS IN DAYROOM AT START OF SHIFT. QUIET AND CONFUSED. AFTER HS SNACKS, ESCORTED TO ROOM TOOK HS MEDS W/O PROBLEM. UP TO BR DURING THE NIGHT, BUT SLEPT WELL OTHERWISE TO THIS POINT IN THE AM.
[2019-06-05 07:55] VITALS: BP 112/58
--- NOTE | 2019-06-05 18:35 | NUR ---
PATIENT ALERT AND ANXIOUS AND COMBATIVE WITH STAFF AT TIMES AND CONFUSED. WILL NOT TAKE MEDS UNLESS CRUSHED IN FOOD. PATIENT INDEPENDENTLY WALKING ON NURSE UNIT. NEEDS ENCOURAGEMENT TO EAT MEALS. WOUND DRESSING TODAY TO SACRUM AND BUTTOCK. LAYED DOWN IN BED BREIFLY THIS AFTERNOON.
[2019-06-05 19:56] VITALS: BP 114/54
--- NOTE | 2019-06-06 01:23 | NUR ---
1909-Report received from day shift nurse and care assumed. Jil was standing in her room or walking down the hallway and also noted in other patients rooms sitting on a chair two or three times. She was redirected and each time time redirections not effective as she prefered to walk around the jason. She was noted reaching for things not seen, auditory hallucinations, talked about subjects to staff with disorganized speech at times noted talking to unseen others as well. She was medication compliant and was restless with insomnia at 2214 and given Trazodone 25 mg. This was not effective as she was preoccupied with hallucinations and talked disorganized subjects, some understood such as different kinds of jams, and said she had to go home with anxiety also. She tried dozing off but would startle and awaken, restless, and sobbed at times also. was called and an order was received for Olanzapine 5 mg. po x 1 now and her to begin Olanzapine 5 mg. po BID tomorrow. She was given the one time medicine at 0030 and she began later to relax in her bed. At 0130 she was still in bed and asleep, thus this medication was effective.
[2019-06-06 07:51] VITALS: BP 146/96
--- NOTE | 2019-06-06 11:25 | NUR ---
Pt. confused this morning while awake, she is alert with periods of lethargy, she is still ambulatory with walker and steady, she refused to eat breakfast and to take her supplement, she did receive her medications crushed in applesauce, I held her scheduled dose of Olanzapine due to her increased lethargy. Continue to monitor for behaviors and safety.
[2019-06-06 19:51] VITALS: BP 92/64
--- NOTE | 2019-06-07 01:21 | NUR ---
Patient was seated on side of bed during rounds. Patient had been incontinent of bowel and bladder. Patient had her pants inside out and upside down trying to put them on. Nurse attempted to assist patient put her pants on and assist her to the bathroom. Patient upset about wearing "2 pair of jeans". Patient took several minutes of encouragement to go into the bathroom. Patient appears paranoid about her surroundings, disoriented. Difficult to re-direct and re-orientate. Patient grabbed nurses shirt around the neck and attempted to pull. Patient yelling, then would look at nurse, smile and attempt to button nurses scrub jacket. While patient was seated in the bathroom, she was allowing nurse to assist her, sitting quietly, then started laughing appearing manic suddenly. Patient delusional, confused, disoriented, impulsive. Dr. Krause notified. Order obtained for Geodon 15mg IM 1x dose due to aggression/agitation. Medication administered. Patient seated in day room in w/c at this time.
--- NOTE | 2019-06-07 01:22 | NUR ---
PATIENT ASSESSED AND IS ALERT X 1. SKIN WARM AND DRY. RESP EVEN AND UNLABORFED. HAS DEMENTIA WITH DEPRESSION BEHAVIORS. ALSO HAS DELUSIONAL BEHAVIORS. PATIENT DID NOT TAKE ALL OF HER MEDICATION AT HS, IT WAS CRUSHED AND PLACED IN YOGART BUT SPIT SOME OUT. PLACED TO BED AND SHE DID SLEEP FOR SMALL AMOUNT OF TIME AND THEN WAS SITTING ON EDGE OF BED ABD RN WENT TO HELP HER AND SHE WAS DELUSIONAL AND PULLED AT RN, NECK AND SHIRT. PLACED IN W/C NAD PLACED IN DINNING ROOM. REMAINS VERY CONFUSED. RN CALLED AND RECEIVED A ONE TIME ORDER FOR GEODON 15 MG IM. INJECTION GIVEN IN RIGHT DELTOID. WILL MONITOR FOR CHANGES. PATIENT IS INCONT OF BLADDER AND BOWEL. PATIENT WAS LETHARGIC AND HAD HER HEAD ON TABLE ON ASSESSMENT. WAS MORE AWAKE AFTER SLEEPING A SMALL AMOUNT. NO S/S OF AH/VH OBSERVED.CONT PLAN OF CARE.
--- NOTE | 2019-06-07 03:19 | NUR ---
PATIENT DRESSING CHANGE TO COCCYX AND RIGHT LATERAL THIGH ULCER.WOUNDS ARE LOOKING HEALTHY PINK IN COLOR WITH NO DRAINAGE NOTED.
--- NOTE | 2019-06-07 04:41 | NUR ---
PATIENT REMAINS SLEEPING.
[2019-06-07 09:27] VITALS: BP 138/93
[2019-06-07 11:57] VITALS: BP 138/93
--- NOTE | 2019-06-07 12:04 | NUR ---
PATIENT UP IN WC THIS MORNING FOR BREAKFAST. SHE IS WEAK AND KEEPS BENDING OVER SAYING SHE SEES THINGS ON THE FLOOR. NOTHING IS THERE. PATIENT ATE 2 BITES OF HER MUFFIN. I SAT WITH HER TO TRY AND FEED HER AND FEED HER. SHE YELLED AND REFUSED. PATIENT TOOK 2 SIPS OF HER ENSURE. UNABLE TO KEEP HER ATTENTION. SHE IS VERY CONFUSED AND DISHEVELED. PATIENT HAD LARGE LOOSE, WATERY BM ON HERSELF IN DINING ROOM TODAY. DR FOY ORDERED VANCOMYCIN FOR CDIFF. ISIAH CISNEROS NOTIFIED OF CDIFF AND SHE SAID PATIENT HAS TO BE MOVED OFF [facility] UNIT. NOTIFIED DR ROSALES AND HE NOTIFIED DR FOY. DR JENSEN ALSO NOTIFIED BY KRISTIE. AWAITING A BED ON MED FLOOR AT THIS TIME. PATIENT IS SLEEPING. CONTINUING TO KEEP PATIENT ISOLATED IN ROOM UNTIL MOVED.
[2019-06-07 13:40] LABS: CALCIUM 9.4 mg/dL (8.5-10.1); CREATININE 1.1 mg/dL (0.6-1.0); POTASSIUM 4.2 mmol/L (3.5-5.1)
[2019-06-07] MEDS ORDERED: DAKIN'S473 ML IRRIG (13:56)
[2019-06-07 14:30] LABS: CALCIUM 9.2 mg/dL (8.5-10.1); POTASSIUM 4.2 mmol/L (3.5-5.1)
[2019-06-07 14:36] LABS: ALBUMIN 3.4 g/dL (3.4-5.0); TOTAL BILIRUBIN 0.4 mg/dL (<0.1-1.0)
[2019-06-07 16:10] LABS: HEMATOCRIT 35.2 % (37.0-47.0); HEMOGLOBIN 11.4 gm/dL (12.0-15.0); MCH 29.6 pg (26.0-34.0); MCHC 32.4 g/dL (28.0-37.0); MCV 91.2 fL (80.0-100.0); RBC 3.86 mil/uL (4.20-5.00); RDW 16.4 % (10.5-14.5); WBC 7.9 thou/uL (4.0-11.0)
--- NOTE | 2019-06-07 16:16 | NUR ---
REPORT CALLED TO RANJIT RN ON TO BE ADMITTED TO [address] SEYMOUR WITH DX C-DIFF,WOUND CARE TO COCYX AND SACRUM WOUNDS COMPLETED BY RN PRIOR TO DC FROM FLOOR. SON ANDREI MORGAN CONTACTED VIA PHONE AND INFORMED OF ADMIT TO . DISCHARGED FROM UNIT VIA WHEELCHAIR ACCOMPNIED BY 5 SOUTH STAFF AT APPROX 1615-PT HAS HAD THREE LARGE LIQUID STOOLS THIS PO-VS STABLE AT DC -ALERT BUT CONFUSED AT TIME OF DC
--- NOTE | 2019-06-10 22:20 | D ---
[facility] [place] [address] DISCHARGE SUMMARY Name: BETTYE DEE Room #: 525B-B [facility] M.R.#: [id number] Admission: 05/12/19 Attend Phys: Jose Luis Krause DO Discharge: 06/07/19 Date of : 38 Report #: [id number] THIS REPORT FOR: //name// CC: Jose Luis Krause Elie Sixto DATE OF SERVICE: 06/07/2019 INPATIENT PSYCHIATRIC DISCHARGE SUMMARY ATTENDING PHYSICIAN: Jose Luis Krause DO PREPRESS TECHNICIAN: Richard Bhatti MD DISCHARGE DIAGNOSES: Major neurocognitive disorder, likely due to Alzheimer disease with behavioral disturbance. Medical comorbidities include sacral decubitus ulcer, right thigh wound. Dr. Edge has been consulting, Clostridium difficile colitis recurrence since finishing prior vancomycin course around 05/28/2019. Anemia, iron levels do not suggest blood loss, was thought to be due to chronic disease. The patient had Klebsiella pneumoniae UTI, finished a course of Ceftin. The patient has atrial fibrillation and is on Cardizem. DISCHARGE PLAN: The patient is discharging to the [facility] at [facility] for treatment of dehydration as well as further treatment and contact isolation for the Clostridium difficile infection. Further discharge planning including problem list and placement will be per the medical floor. REASON FOR ADMISSION: Back on 05/12/2019, the patient was sent from [facility] in [place], [place] for confusion, agitation and combative behavior. She was actually being treated for UTI at that time, tried to perch a lamp over nurses' head, had been hitting and spitting on people for the last few days prior to admission. HOSPITAL COURSE: The patient was admitted to the [facility]. We settled her on Depakote regimen of 500 mg b.i.d. Olanzapine was initially started and Haldol was started. The fdc had declined to take her back to [facility]. They apparently did not like the Haldol. The patient requested not turn her off any psychotic, we tried that, she became more paranoid at times, bizarre, so I resumed the antipsychotic, I chose olanzapine, so she was tolerating that well. About 24 hours before she went medical, several loose stools occurred. In addition, the patient was showing some signs of hypernatremia. The patient's behavior was stable and not need any further psychiatric hospitalizations ____ primarily become a placement issue. [address] [address] DISCHARGE SUMMARY Name: BETTYE DEE Room #: 525B-B DIS IN ..#: [id number] Admission: 05/12/19 Attend Phys: Jose Luis Krause, DO Discharge: 06/07/19 Date of : 38 Report #: [id number] LABORATORY DATA: Most recent laboratories at the time of discharge on 06/07/2019 H and H 11.4 and 35.2, white count 7.9, platelets 111. Chemistries from the 14th, sodium 147, potassium 4.2, chloride 110, bicarbonate 25, BUN 29, creatinine 1.1, GFR around 48. Last Depakote level on 06/01/2019 was 44. I was just thinking the patient could benefit from more, however, we want her to get past the current clinical problems before that is increased. Last UA was abnormal on 05/26/2019 and as stated culture was positive for Klebsiella pneumoniae. PHYSICAL EXAMINATION: VITAL SIGNS: At the time of discharge yesterday, temperature 36.1, pulse 90, respirations 15, BP 130/93, O2 sat 97%. GENERAL: The patient was nonambulatory, kind of in a curled position in bed. MENTAL STATUS EXAMINATION: This is a well-developed, disheveled female who apparently is stated age. Attention limited. Concentration limited. Speech, normal rate. Thought process linear, very limited. Thought content, would reply to basic questions, but factually incorrect like day of week, month, etc. No psychomotor agitation or sudden retardation. Denied SI, HI. Denied hopelessness, helplessness. Memory noted to be impaired. Insight limited. Judgment impaired. Fund of knowledge well below average. Prognosis guarded to poor given the amount of Clostridium difficile complication. I will be available to consult on her case if desired by Dr. Bhatti of the hospitalist service while she is on the medical unit. ADDENDUM: DISCHARGE MEDICATIONS: Vancomycin 125 mg p.o. every other day; sodium hypochlorite 1 bottle irrigation daily; DuoNeb; ipratropium with albuterol 3 mL inhaled RT q. 4 p.r.n. wheezing; diltiazem 100 mg p.o. b.i.d. for hypertension; Protonix 40 mg p.o. daily for GERD; ferrous sulfate 325 mg p.o. at bedtime; diclofenac sodium topical q. 12 p.r.n. for pain; acetaminophen 650 mg p.o. t.i.d. at 0600, 1400, 2200; cholecalciferol 1000 international units daily for supplementation; multivitamin p.o. daily; tamsulosin 0.4 mg p.o. daily for urinary flow; vitamin C 500 mg p.o. daily for wound healing. The patient already completed her cefuroxime course for UTI at this admission. <ELECTRONICALLY SIGNED> By: Jose Luis Krause DO 06/10/19 2220 [id number] Jose Luis Krause DO /nt
== END 2019-06-07 16:19 | disposition short-term general hospital (02) | DRG 56 ==
LOC: ER 15:57 → SBH 17:22 → EROBS 17:22 → SBH 05-13 00:14
PROVIDERS: Emergency Medicine Emergency Medical Services; Hospitalist; Nurse Practitioner Family; ADMIT Psychiatry & Neurology Psychiatry
DX: G30.9 Alzheimer's disease, unspecified (principal); L89.313 Pressure ulcer of right buttock, stage 3; L89.153 Pressure ulcer of sacral region, stage 3; I50.32 Chronic diastolic (congestive) heart failure; F02.81 Dementia in other diseases classified elsewhere, unspecified severity, with behavioral disturbance; A04.71 Enterocolitis due to Clostridium difficile, recurrent; N39.0 Urinary tract infection, site not specified; E44.0 Moderate protein-calorie malnutrition; Z66 Do not resuscitate; F32.9 Major depressive disorder, single episode, unspecified; B96.1 Klebsiella pneumoniae [K. pneumoniae] as the cause of diseases classified elsewhere; E87.6 Hypokalemia; D63.8 Anemia in other chronic diseases classified elsewhere; I48.91 Unspecified atrial fibrillation; L89.159 Pressure ulcer of sacral region, unspecified stage; K21.9 Gastro-esophageal reflux disease without esophagitis; Z68.25 Body mass index [BMI] 25.0-25.9, adult; Z90.49 Acquired absence of other specified parts of digestive tract; Z79.899 Other long term (current) drug therapy
CPT/HCPCS: 10880

== ENCOUNTER 2019-06-07 17:37 | Inpatient (IN) | payer OTHER ==
[~2019-06-07] VITALS: Ht 154.9 cm; Wt 55.9 kg
[~2019-06-07 17:37] MED LIST changes: +DAKIN'S473 ML IRRIG; +SEROQUEL 25 MG25 M1 PO; +VANCOCIN 125 M125 M1; +VANCOCIN 125 M125 M1 PO; +VITAMIN C500 M1 PO
[2019-06-07 19:39] VITALS: BP 137/74
--- NOTE | 2019-06-07 21:19 | NUR ---
PATIENT ARRIVED ON 4S ROOM 445 ABOUT 1700 VIA WHEELCHAIR AND PLACED IN ISOLATION FOR C-DIF. PATIENT IN BED AND ALARM ON. PATIENT ATE POORLY AND CALLING OUT AND YELLING. OTHER PATIENTS COMPLAINING OF PATIENT YELLING. IM HALDOL GIVEN. DIFFICULTY GETTING ORDERS FROM DR. FOY MED SURG ORDERS WERE PLACED ON PSYCH UNIT ENCOUNTER. EVENTUALLY CONTACTED NIK CAVAZOS NP FOR ORDERS.
--- NOTE | 2019-06-08 04:45 | NUR ---
Assumed pt care at 1900. Pt was very combative/agitated at beginning of shift,medicated with IM Haldol with relief noted afterwards and pt has been cooperative with cares since then. Admission assessment/woundcare completed w/o further problems. Pt incontinent of B&B. Stool sample obtained for c-diff, special contact isolation maintained.Denies pain on assessment. IV inserted on RAC,IVF infusing w/o problems. Fall precautions implemented. Pt resting quietly at this time,will continue to monitor pt.
[2019-06-08 06:37] LABS: HEMATOCRIT 34.3 % (37.0-47.0); HEMOGLOBIN 11.3 gm/dL (12.0-15.0); MCH 30.1 pg (26.0-34.0); MCHC 33.1 g/dL (28.0-37.0); MCV 90.9 fL (80.0-100.0); RBC 3.78 mil/uL (4.20-5.00); RDW 16.1 % (10.5-14.5); WBC 7.9 thou/uL (4.0-11.0)
[2019-06-08 06:46] LABS: CALCIUM 9.4 mg/dL (8.5-10.1); POTASSIUM 3.6 mmol/L (3.5-5.1)
[2019-06-08 07:26] VITALS: BP 122/78
--- NOTE | 2019-06-08 16:36 | NUR ---
INITIAL ASSESSMENT: [facility]. Pt had been hospitalized at [facility] February 23 for 9 days, then went to [facility] SNF. Pt was hospitalized again at [facility] March 27 for 6 days and then again on April 30 for 5 days. She subsequently went to [facility] after those hospital stays. Pt was admitted to [facility] at [facility]. [facility] reportedly told [facility] they are not able to accept pt back on d/c from hospital. Documentation indicates that referral had been made to [facility]. Called [facility] and spoke with Melida. She said they would need Level 2 results prior to admission, but they have clinically accepted patient. Will f/u on Friday.
[2019-06-08 17:12] VITALS: BP 147/88
--- NOTE | 2019-06-08 20:06 | NUR ---
ASSUMED CARE OF PATIENT AT 0715, PATIENT ALERT WITH CONFUSION, IMPULSIVE. FALL PRECAUTIONS IN PLACE. PATIENT HOLLARING DURING THE SHIFT AND TRYING TO GET UP MULTIPLE TIMES, ALSO TAKING OFF GOWN ALL SHIFT. THIS RN NOTIFIED DR FOY, RECEIVED ORDER FOR HALDOL 4 MG IM X 1. PATIENT ASSISTED WITH MEALS. PATIENT ISOLATION FOR C-DIFF. WOUNDS TO SACRAL/ AND RIGHT BUTTOCKS, NEW ORDERS RECEIVED PER WOUND CARE. IV RIGHT FOREARM WITH NS AT 75CC/HR. VANCO PO GIVEN ORDERED. WILL CONTINUE TO MONITOR.
[2019-06-08 20:19] VITALS: BP 144/95
--- NOTE | 2019-06-09 04:58 | NUR ---
ASSUMED CARE OF PT AT SHIFT CHANGE. PT APPEARS TO BE DROWSY. SHE WAS GIVEN HALDOL ONETIME PRN TODAY FOR AGAITATION. THIS SHIFT SHE HAS NOT DISPLAYED A LOT OF AGITATION AND WAS EASILY REDIRECTED. PATIENT LEFT ALONE TO REST UNTIL CLOSER TO MEDICATION TIME.
--- NOTE | 2019-06-09 05:03 | NUR ---
PT WAS DIFFICULT TO WAKE. WOUNDS WERE CLEANED AND DRESSED. PT TOLERATED THIS WELL AND DID NOT SHOW SIGNS OF AGITATION. MEDS WERE GIVEN PER OCT. MEDS TO BE CRUSHED AND GIVEN W/ ICE CREAM. PT TOLERATED THIS WELL. REMAINING MEDS GIVEN WITH PUDDING. PT DID NOT HAVE A BM AT THIS TIME BUT DID HAVE AN EPISODE OF INCONTINENCE. PT WAS REPOSITIONED AND MADE COMFORTABLE. FALL PRECAUTIONS IN PLACE, ROOM NEAR NURSES STATION, WILL CONTINUE TO MONITOR
[2019-06-09 05:43] LABS: ALBUMIN 2.9 g/dL (3.4-5.0); CALCIUM 8.6 mg/dL (8.5-10.1); CREATININE 0.8 mg/dL (0.6-1.0); PHOSPHORUS 3.4 mg/dL (2.5-4.9); POTASSIUM 3.4 mmol/L (3.5-5.1)
[2019-06-09 10:00] VITALS: BP 126/58
[2019-06-09 16:57] VITALS: BP 126/60
[2019-06-09 20:01] VITALS: BP 138/74
--- NOTE | 2019-06-09 20:41 | NUR ---
ASSUMED CARE OF PATIENT AT 0715, PATIENT ALERT WITH CONFUSION, AND DISORIENTED X 4. PATIENT RECEIVES TYLENOL SCHEDULED. C-DIFF ISOLATION/ VANCO PO GIVEN ORDERED. PATIET HAD RIGHT IV IN PLACE WITH IV FLUIDS AT 75CC/HR. PATIENT PULLED IV OUT, UNABLE TO OBTAIN, THIS RN NOTIFIED IV TEAM OF NEEDING IV. PATIENT HAS BEEN INCONTINENT X 3 WITH STOOL AND URINE. PATIENT REFUSED LUNCH AND HAS SUPPLEMENTS ORDERED BID. THIS RN NOTIFED DR ROSALES/PSY DOCTOR [facility], RECEIVED ORDER FOR HALDOL 5MG IM AND ATIVAN 1 MG IM X 1 THIS SHIFT, AND HALDOL 5MG IM Q2HRS/PRN AGITATION. FALL PRECAUTIONS IN PLACE, HRLY ROUNDS DONE. WILL CONTINUE TO MONITOR.
[2019-06-10 03:30] VITALS: BP 124/54
[2019-06-10 05:30] LABS: HEMATOCRIT 29.5 % (37.0-47.0); HEMOGLOBIN 9.9 gm/dL (12.0-15.0); MCH 30.1 pg (26.0-34.0); MCHC 33.6 g/dL (28.0-37.0); MCV 89.6 fL (80.0-100.0); RBC 3.29 mil/uL (4.20-5.00); RDW 15.9 % (10.5-14.5); WBC 6.6 thou/uL (4.0-11.0)
--- NOTE | 2019-06-10 05:54 | NUR ---
PATIENT ALERT MOST OF NIGHT. HAS NOT TRIED TO GET OUT OF BED. NO PRN'S GIVEN TONIGHT. REMAINS IN ISO FOR C-DIFF. TOOK MEDS WITH NO TROUBLE.DENIED PAIN.
[2019-06-10 05:58] LABS: CALCIUM 8.6 mg/dL (8.5-10.1); CREATININE 0.8 mg/dL (0.6-1.0); MAGNESIUM 1.6 mg/dL (1.8-2.4); POTASSIUM 3.2 mmol/L (3.5-5.1)
[2019-06-10 08:20] VITALS: BP 124/60
--- NOTE | 2019-06-10 13:26 | NUR ---
Following for d/c planning needs. Received message from [employer] Operator on Behavioral Health Unit. She had spoken with Karrie Jane at [facility] and pt does not need Level II screening. Ivet said she faxed information to [facility]. Spoke several times this morning with [facility] marketing and outreach coordinator and faxed referral. Pt has been accepted to [facility] and they are able to accept for SNF after they receive insurance authorization. [facility] said they are able to provide w/c van transportation. Plan is for pt to go SNF and then transition to termite treater care under her Medicaid benefit. Called son and he is agreeable to transfer to facility when approved.
[2019-06-10 13:57] LABS: MAGNESIUM 2.6 mg/dL (1.8-2.4); POTASSIUM 3.9 mmol/L (3.5-5.1)
[2019-06-10 21:50] VITALS: BP 105/65
[2019-06-11 03:40] LABS: HEMATOCRIT 31.1 % (37.0-47.0); HEMOGLOBIN 10.2 gm/dL (12.0-15.0); MCH 29.6 pg (26.0-34.0); MCHC 32.9 g/dL (28.0-37.0); MCV 90.1 fL (80.0-100.0); RBC 3.45 mil/uL (4.20-5.00); WBC 7.9 thou/uL (4.0-11.0)
[2019-06-11 03:51] LABS: CREATININE 0.8 mg/dL (0.6-1.0); MAGNESIUM 2.1 mg/dL (1.8-2.4); POTASSIUM 3.9 mmol/L (3.5-5.1)
--- NOTE | 2019-06-11 06:42 | NUR ---
PT ALERT AND ORIENTED [place]. DID NOT TRY TO GET OUT OF BED. TOOK MEDS VERY WELL. DID NOT SLEEP MUCH THIS SHIFT. NO STOOLS NOTED THIS SHIFT. DENIES PAIN.
[2019-06-11 08:01] VITALS: BP 122/46
[2019-06-11] MEDS ORDERED: ACIDOPHILUS1 EAC4 PO (09:29)
[2019-06-11] MEDS ORDERED: ZYPREXA 5 MG TAB5 M2 PO (09:29)
--- NOTE | 2019-06-11 10:35 | NUR ---
ASSUMED CARE OF PATIENT AT 0715, PATIENT ALERT THIS AM WITH CONFUSION AND ONLY ORIENTED TO PERSON. NO AGITATION THIS AM. PATIENT DENIES PAIN THIS AM. PATIENT HAD IV RIGHT FOREARM, INFILTRATED, THIS IV REMOVED. THIS RN NOTIFIED DR AKHTAR OF IV INFILTRATED, RECEIVED ORDER TO D/C IV FLUIDS. PATIENT WILL DISCHARGE TO [facility] IN [place]. THIS RN ATTEMPTED TO CALL REPORT, BUT CHARGE NURSE NOT AVAILABLE. JENELLE/AMNA PUT CALL IN TO THE FACILITY, AND LEFT MESSAGE TO HAVE ADMISSION NURSE CALL FOR REPORT. PATIENT WOUND CARE DONE, AND PHOTO TAKEN. PATIENT HAD LARGE BM PRIOR TO LEAVING. PATIENT IN ISOLATION FOR C-DIFF. PATIENT TOOK ALL AM MEDS. ALL PERSONAL BELONGINGS SENT WITH THE PATIENT AND DISCHARGE PACKET. WILL CONTINUE TO MONITOR.
--- NOTE | 2019-06-11 12:08 | NUR ---
PT DISCHARGING TODAY TO [facility] FAXED DC ORDERS/SUMMARY TO FACILITY RECEIVED CONFIRMATION. TRANSPORT ARRANGED BY FACILITY. FAMILY NOTIFIED. CHART COPY PER US.
== END 2019-06-11 10:50 | DRG 371 ==
LOC: 4S 17:37
PROVIDERS: Internal Medicine; Nurse Practitioner Family; ADMIT Hospitalist
DX: A04.72 Enterocolitis due to Clostridium difficile, not specified as recurrent (principal); L89.313 Pressure ulcer of right buttock, stage 3; L89.153 Pressure ulcer of sacral region, stage 3; I50.30 Unspecified diastolic (congestive) heart failure; E87.1 Hypo-osmolality and hyponatremia; E44.0 Moderate protein-calorie malnutrition; F03.90 Unspecified dementia, unspecified severity, without behavioral disturbance, psychotic disturbance, mood disturbance, and anxiety; I48.91 Unspecified atrial fibrillation; K21.9 Gastro-esophageal reflux disease without esophagitis; F32.9 Major depressive disorder, single episode, unspecified; Z66 Do not resuscitate; R39.11 Hesitancy of micturition; D69.6 Thrombocytopenia, unspecified; E87.6 Hypokalemia; E83.42 Hypomagnesemia; Z28.21 Immunization not carried out because of patient refusal; Z86.73 Personal history of transient ischemic attack (TIA), and cerebral infarction without residual deficits; Z68.23 Body mass index [BMI] 23.0-23.9, adult
CPT/HCPCS: 10102